=== PATIENT | male | born 1955 | race Caucasian/White ===

== ENCOUNTER 2019-12-21 11:45 | Emergency (ER) | payer OTHER ==
[~2019-12-21] VITALS: Ht 170.2 cm; Wt 69.9 kg
[2019-12-21 11:46] VITALS: BP 125/81
--- NOTE | 2019-12-21 11:54 | NUR ---
64 YO MALE CO SOB AND UTI SYMPTOMS. PT HAD A POSITIVE COVID TEST ON FRIDAY WELL A POSITIVE UTI. PT HAS PAIN WITH URINATION. DENIES ANY HEMATURIA. PT HAS WHEEZES THROUGHOUT AND A NON PRODUCTIVE COUGH. PMH- ASTHMA RX-
--- NOTE | 2019-12-21 12:01 | NUR ---
Note undone in EDM - 12/21/19 at 1240 by [facility] Patient discharged with v/s stable. Written and verbal after care instructions given and explained. Patient alert, oriented and verbalized understanding of instructions. Ambulatory with steady gait. All questions addressed prior to discharge. ID band removed. Patient advised to follow up with PMD. Rx of PREDNISONE AND BENEDRYL given. Patient educated on indication of medication including possible reaction and side effects. Opportunity to ask questions provided and answered.
--- NOTE | 2019-12-21 12:43 | NUR ---
DAUGHTERS CONTACT INFORMATION IS [phone] TERRI
[2019-12-21] MEDS ORDERED: predniSONE 20 MG TAB PO ONE (12:50)
--- NOTE | 2019-12-21 13:38 | NUR ---
16 FR COUDE INSERTED AND 1500CC OF DARK BROWN URINE WAS REMOVED. LEG BAG ATTACHED AND URINE DIP COMPLETE, RESULTS GIVEN TO
[2019-12-21 13:45] VITALS: BP 125/81
--- NOTE | 2019-12-21 13:46 | NUR ---
Patient discharged with v/s stable. Written and verbal after care instructions given and explained. Patient alert, oriented and verbalized understanding of instructions. Ambulatory with steady gait. All questions addressed prior to discharge. ID band removed. Patient advised to follow up with PMD. Rx of PREDNISONE AND CIPRO given. Patient educated on indication of medication including possible reaction and side effects. Opportunity to ask questions provided and answered.
== END 2019-12-21 13:46 | disposition home or self-care (01) ==
LOC: MED 11:45
DX: U07.1 COVID-19 (principal); R05 Cough; R06.02 Shortness of breath; N39.0 Urinary tract infection, site not specified; R33.9 Retention of urine, unspecified; J45.909 Unspecified asthma, uncomplicated
CPT/HCPCS: 71045; 81002; 99283; J7512; Q0092

== ENCOUNTER 2019-12-24 16:02 | Emergency (ER) | payer OTHER ==
[~2019-12-24] VITALS: Ht 165.1 cm; Wt 70.3 kg
[2019-12-24 16:07] VITALS: BP 148/71
--- NOTE | 2019-12-24 16:30 | NUR ---
64 year old male complains of penile pain with some blood inside urine in catheter after placement 4 days ago. Pt denies any changes in urination, right catheter urine bag with 100ml yellow clear urine. Pt AOx4, breathing even and unlabored, skin warm and dry. bed in lowest position, locked, bed rail upx1. PMH - asthma allergies - NKA
[2019-12-24] MEDS ORDERED: LIDOCAINE JELLY 2% 30 ML TUBE TP ONE (16:35)
[2019-12-24 17:07] LABS: APPEARANCE,URINE CLEAR (CLEAR); BILIRUBIN,URINE NEGATIVE (NEGATIVE); BLOOD, URINE 3+ (NEGATIVE); COLOR,URINE YELLOW (YELLOW); LEUKOCYTE ESTERASE ,URINE NEGATIVE (NEGATIVE); NITRITE, URINE NEGATIVE (NEGATIVE); UGLUCOSE NEGATIVE (NEGATIVE)
[2019-12-24 17:10] VITALS: BP 148/71
--- NOTE | 2019-12-24 17:10 | NUR ---
Patient discharged with v/s stable. Written and verbal after care instructions about byrd catheter care given and explained in pashto. Patient alert, oriented and verbalized understanding of instructions. Ambulatory with steady gait. All questions addressed prior to discharge. ID band removed. Patient advised to follow up with PMD. Rx of lidocaine jelly, azithromycin, albuterol inhaler given. Patient educated on indication of medication including possible reaction and side effects. Opportunity to ask questions provided and answered.
[2019-12-24 17:19] LABS: RBC,URINE TOO NUMEROUS TO COUN /HPF (0-5)
[2019-12-24 17:20] LABS: WBC,URINE NONE SEEN /HPF (0-5)
== END 2019-12-24 17:10 | disposition home or self-care (01) ==
LOC: MED 16:02
DX: N34.2 Other urethritis (principal); R31.9 Hematuria, unspecified; U07.1 COVID-19; J45.909 Unspecified asthma, uncomplicated; Z46.6 Encounter for fitting and adjustment of urinary device
CPT/HCPCS: 51702; 81001; 99284

== ENCOUNTER 2020-06-08 11:04 | Day surgery (SDC) | payer OTHER, SELFPAY ==
[~2020-06-08] VITALS: Ht 165.1 cm; Wt 77.1 kg
[2020-06-08] MEDS ORDERED: diphenhydrAMINE 50 MG/ML VIAL ONE (12:32)
[2020-06-08] MEDS ORDERED: fentaNYL citrate 0.05 MG/ML VIAL ONE (12:32)
[2020-06-08] MEDS ORDERED: MIDAZOLAM 5 MG/5 ML VIAL ONE (12:32)
[2020-06-08] MEDS ORDERED: LIDOCAINE 2% 100 MG/5 ML UJET TP ONE (12:33)
[2020-06-08] MEDS ORDERED: fentaNYL citrate 0.05 MG/ML VIAL IVP ONE (16:50)
[2020-06-08] MEDS ORDERED: MIDAZOLAM 2 MG/2 ML VIAL IVP ONE (16:50)
== END 2020-06-08 14:30 | disposition home or self-care (01) ==
LOC: MDS 11:04 → MFCC 11:05 → MDS 14:30
PROVIDERS: ATTEND Internal Medicine Gastroenterology
DX: K62.5 Hemorrhage of anus and rectum (principal); R10.13 Epigastric pain; Z86.010 Personal history of colon polyps; Z98.890 Other specified postprocedural states; Z20.828 Contact with and (suspected) exposure to other viral communicable diseases
CPT/HCPCS: 43239; 45378; J2250; J3010; U0003; J1200